=== PATIENT | male | born 1970 | race Caucasian/White ===

== ENCOUNTER 2018-07-29 10:49 | Emergency (ER) | payer OTHER ==
[~2018-07-29] VITALS: Ht 182.9 cm; Wt 102.1 kg
[2018-07-29] MEDS ORDERED: KEFLEX500 M1 PO (12:51)
[2018-07-29 13:08] VITALS: BP 116/72
== END 2018-07-29 13:16 | disposition home or self-care (01) ==
LOC: M.ERS 10:49
DX: S61.210A Laceration without foreign body of right index finger without damage to nail, initial encounter (principal); E11.9 Type 2 diabetes mellitus without complications; W23.0XXA Caught, crushed, jammed, or pinched between moving objects, initial encounter; Y93.89 Activity, other specified; Y92.89 Other specified places as the place of occurrence of the external cause; Y99.8 Other external cause status

== ENCOUNTER → 2020-11-16 | Outpatient (CLI) | payer OTHER ==
[~2020-11-16] MED LIST: KEFLEX500 M1 PO
== END ==
LOC: M.MRI 06:52
PROVIDERS: ATTEND Family Medicine
DX: M50.122 Cervical disc disorder at C5-C6 level with radiculopathy (principal); M48.02 Spinal stenosis, cervical region; E11.9 Type 2 diabetes mellitus without complications; E78.2 Mixed hyperlipidemia